=== PATIENT | female | born 1975 | race American Indian/Alaskan Native ===

== ENCOUNTER 2017-05-14 08:04 | Emergency (ER) | payer MEDICAID ==
[2017-05-14 09:17] LABS: Basophils % (Auto) 0.4 % (0.0-1.8); Eosinophils % (Auto) 2.2 % (0.0-4.3); Hematocrit 33.4 % (30.3-42.9); Hemoglobin 10.6 gm/dl (10.1-14.3); Mean Corpuscular HGB Conc 32 % (30-34); Platelet Count 252 K/mm3 (140-440); Red Blood Count 4.78 M/mm3 (3.65-5.03); White Blood Count 6.4 K/mm3 (4.5-11.0)
[2017-05-14 09:25] LABS: Mean Corpuscular Hemoglobin 22 pg (28-32); Mean Corpuscular Volume 70 fl (79-97); Red Cell Distribution Width 22.7 % (13.2-15.2)
[2017-05-14 10:03] LABS: Bilirubin,Urine NEG (Negative); Blood,Urine LG (Negative); Ketones,Urine NEG (Negative); Leukocyte Esterase,Urine SM (Negative); Mucus,Urine FEW /HPF; Nitrite,Urine NEG (Negative); Protein,Urine <15 mg/dL mg/dL (Negative); Urobilinogen,Urine < 2.0 mg/dL (<2.0)
--- NOTE | 2017-05-14 10:14 | Emergency Department Report ---
HPI - General Chief Complaint: Vaginal Bleeding Time Seen by Provider: 05/14/17 10:03 - [facility] HPI: Room 17 The patient is a 42-year-old female presenting with a chief complaint of vaginal bleeding. The patient states she is and early this morning at approximately 03:00 she developed bright red spotting. The patient states later this morning at approximately 06:00 the blood became darker and she passed one clot. The patient states she contacted her SURGERY AID (Dr. Naga Pepe/ [facility]) in the office instructed her to come to the emergency department. Patient denies pain of any type. Patient states she has not had an ultrasound yet for this Location: Pelvis Duration: Intermittent since 03:00 Quality: Painless Severity: Spotting Modifying factors: [see above] Context: [see above] Mode of transportation: Unknown ED Past Medical Hx - Past Medical History Previous Medical History?: No Additional medical history: MVP - Surgical History Past Surgical History?: Yes Additional Surgical History: x 2 - Family History Family history: no significant - Social History Smoking Status: Never Smoker Substance Use Type: None - Medications Home Medications: Home Medications Medication Instructions Recorded Confirmed Last Taken Type Ibuprofen [Motrin] 800 mg PO Q8HR PRN #15 tablet 05/20/16 Unknown Rx Penicillin Vk [Veetids TAB] 250 mg PO QID #28 tablet 05/20/16 Unknown Rx Nitrofurantoin Stone/M-Cryst 100 mg PO Q12HR #14 capsule 05/14/17 Unknown Rx [Macrobid CAP] ED Review of Systems ROS: Stated complaint: VAGINAL BLEEDING WHILE 10 WKS PREG. Other details as noted in HPI Comment: All other systems reviewed and negative Constitutional: denies: chills, fever Eyes: denies: eye pain, eye discharge, vision change ENT: denies: ear pain, throat pain Respiratory: denies: cough, shortness of breath, wheezing Cardiovascular: denies: chest pain, palpitations Endocrine: no symptoms reported Gastrointestinal: denies: abdominal pain, nausea, diarrhea Genitourinary: abnormal menses Musculoskeletal: denies: back pain, joint swelling, arthralgia Skin: denies: rash, lesions Neurological: denies: headache, weakness, paresthesias Psychiatric: denies: anxiety, depression Hematological/Lymphatic: denies: easy bleeding, easy bruising Physical Exam - Physical Exam Vital Signs: Vital Signs 05/14/17 08:26 Temperature 97.6 F Pulse Rate 77 Respiratory 16 Rate Blood Pressure 143/79 O2 Sat by Pulse 100 Oximetry Physical Exam: GENERAL: The patient is well-developed well-nourished female sitting on stretcher not appear to be in acute distress. [] HEENT: Normocephalic. Atraumatic. Extraocular motions are intact. Patient has moist mucous membranes. NECK: Supple. Trachea midline CHEST/LUNGS: Clear to auscultation. There is no respiratory distress noted. HEART/CARDIOVASCULAR: Regular. There is no tachycardia. There is no gallop rub or murmur. ABDOMEN: Abdomen is soft, nontender. Patient has normal bowel sounds. There is no abdominal distention. SKIN: There is no rash. There is no edema. There is no diaphoresis. NEURO: The patient is awake, alert, and oriented. The patient is cooperative. The patient has normal speech MUSCULOSKELETAL: There is no evidence of acute injury. ED Course Vital Signs 05/14/17 08:26 Temperature 97.6 F Pulse Rate 77 Respiratory 16 Rate Blood Pressure 143/79 O2 Sat by Pulse 100 Oximetry ED Medical Decision Making - Lab Data Result diagrams: 05/14/17 08:32 Laboratory Tests 05/14/17 05/14/17 05/14/17 08:32 08:32 08:36 WBC 6.4 RBC 4.78 Hgb 10.6 Hct 33.4 MCV 70 L MCH 22 L MCHC 32 RDW 22.7 H Plt Count 252 Lymph % (Auto) 29.9 Stone % (Auto) 9.3 H Eos % (Auto) 2.2 Baso % (Auto) 0.4 Lymph # 1.9 Stone # 0.6 Eos # 0.1 Baso # 0.0 Seg Neutrophils % 58.2 Seg Neutrophils # 3.7 HCG, Quant 2798 H Urine Color Urine Turbidity Urine pH Ur Specific [place] Urine Protein Urine Glucose (UA) Urine Ketones Urine Blood Urine Nitrite Urine Bilirubin Urine Urobilinogen Ur Leukocyte Esterase Urine WBC (Auto) Urine RBC (Auto) U Epithel Cells (Auto) Urine Mucus Blood Type O POSITIVE Antibody Screen Negative 05/14/17 09:40 WBC RBC Hgb Hct MCV MCH MCHC RDW Plt Count Lymph % (Auto) Stone % (Auto) Eos % (Auto) Baso % (Auto) Lymph # Stone # Eos # Baso # Seg Neutrophils % Seg Neutrophils # HCG, Quant Urine Color Yellow Urine Turbidity Clear Urine pH 7.0 Ur Specific [place] 1.013 Urine Protein <15 mg/dl Urine Glucose (UA) Neg Urine Ketones Neg Urine Blood Lg Urine Nitrite Neg Urine Bilirubin Neg Urine Urobilinogen < 2.0 Ur Leukocyte Esterase Sm Urine WBC (Auto) 11.0 H Urine RBC (Auto) 6.0 U Epithel Cells (Auto) 2.0 Urine Mucus Few Blood Type Antibody Screen - Radiology Data Radiology results: report reviewed (pelvic ultrasound), image reviewed (pelvic ultrasound) Pelvic ultrasound (read by radiologist)-sonographic findings may represent an intrauterine demise with ultrasound estimated age of 8 weeks and 5 days. Both ovaries identified. Correlation and with serial serum beta hCG that is maybe obtained and/or sonographic follow-up - Differential Diagnosis threatened , spontaneous , missed , ectopic pregnan Critical care attestation.: If time is entered above; I have spent that time in minutes in the direct care of this critically ill patient, excluding procedure time. ED Disposition Clinical Impression: Threatened , UTI (urinary tract infection) Disposition: DC-01 TO HOME OR SELFCARE Is pt being admited?: No Does the pt Need Aspirin: No Condition: Stable Instructions: Threatened Miscarriage (ED) Additional Instructions: Return to the emergency department immediately should you develop worsening symptoms, fever, inability to tolerate food or liquid or any other concerns. Prescriptions: Nitrofurantoin Stone/M-Cryst [Macrobid CAP] 100 mg PO Q12HR #14 capsule Referrals: your, SURGERY AID [Other] - [facility] Time of Disposition: 11:55
--- NOTE | 2017-05-14 11:43 | Ultrasound Report ---
ULTRASOUND OB LESS THAN 14 WEEKS - TRANSABDOMINAL AND TRANSVAGINAL INDICATION: Pain, vaginal bleeding. Serum beta-hCG 2,798 units. COMPARISON: None similar at this institution. FINDINGS: Transabdominal and transvaginal pelvic sonography performed in this patient with LMP of 03/07/2017 and estimated menstrual age of 9 weeks and 5 days. A 12.7 x 6.5 x 8.2 cm anteverted uterus demonstrates a single intrauterine gestation. No heart tones though obtained. Mean crown-rump length of 1.8 cm corresponds to 7 weeks and 5 days. Mean gestational sac diameter of 4.2 cm corresponds to 9 weeks and 5 days. No significant pelvic free fluid. Cervix closed. Right ovary unremarkable at 2.2 x 1.8 x 2.1 cm. Left ovary is 4.1 x 1.6 x 2.6 cm with a 2 cm cyst, endovaginal image 27. CONCLUSION: 1. Sonographic findings may represent an intrauterine demise with ultrasound estimated age of 8 weeks and 5 days. 2. Both ovaries identified, as described above. ACQUISITION ASSOCIATE correlation and with serial serum beta-hCG values may be obtained and/or sonographic followup, as warranted. Thank you for the opportunity to participate in this patient's care.
--- NOTE | 2017-05-14 11:44 | Ultrasound Report ---
ULTRASOUND OB LESS THAN 14 WEEKS - TRANSABDOMINAL AND TRANSVAGINAL INDICATION: Pain, vaginal bleeding. Serum beta-hCG 2,798 units. COMPARISON: None similar at this institution. FINDINGS: Transabdominal and transvaginal pelvic sonography performed in this patient with LMP of 03/07/2017 and estimated menstrual age of 9 weeks and 5 days. A 12.7 x 6.5 x 8.2 cm anteverted uterus demonstrates a single intrauterine gestation. No heart tones though obtained. Mean crown-rump length of 1.8 cm corresponds to 7 weeks and 5 days. Mean gestational sac diameter of 4.2 cm corresponds to 9 weeks and 5 days. No significant pelvic free fluid. Cervix closed. Right ovary unremarkable at 2.2 x 1.8 x 2.1 cm. Left ovary is 4.1 x 1.6 x 2.6 cm with a 2 cm cyst, endovaginal image 27. CONCLUSION: 1. Sonographic findings may represent an intrauterine demise with ultrasound estimated age of 8 weeks and 5 days. 2. Both ovaries identified, as described above. WOOD TYPE FINISHER correlation and with serial serum beta-hCG values may be obtained and/or sonographic followup, as warranted. Thank you for the opportunity to participate in this patient's care.
[2017-05-14 12:09] VITALS: BP 122/66
== END 2017-05-14 12:07 | disposition home or self-care (01) ==
LOC: ED 08:04
DX: O20.0 Threatened abortion (principal); Z3A.08 8 weeks gestation of pregnancy; O23.31 Infections of other parts of urinary tract in pregnancy, first trimester
CPT/HCPCS: 36415; 76801; 76817; 81001; 84702; 85025; 86850; 86900; 86901